=== PATIENT | male | born 1945 | race Caucasian/White ===

== ENCOUNTER → 2018-06-07 | Outpatient (REF) ==
[~2018-06-07] MED LIST: ALLEGRA 180MG180 MG PO; COMBIVENT INH14.7 GM IH; COUMADIN; DYAZIDE 25 MG-31 CAP PO; HCTZ; K-DUR20 MEQ PO; KLONOPIN 0.5MG0.5 MG PO; LIPITOR 10MG10 MG PO; LISINOPRIL; PRILOSEC 20MG20 MG PO; PRINIVIL20 MG PO; PROCARDIA XL 3030 MG PO; PROCARDIA10 MG PO; RESTORIL; RESTORIL30 MG; REVATIO20 MG PO; SINEQUAN75 MG PO; SYNTHROID0.1 MG/TAB PO; VICODIN 5/5001 UDTAB PO
[2018-06-07 15:42] LABS: THYROID STIMULATING HORMONE 2.15 uIU/mL (0.465-4.680)
[2018-06-07 16:11] LABS: PSA-TOTAL 1.11 ng/mL (0-4)
== END ==
LOC: ZLAB.WCH 14:50
PROVIDERS: Family Medicine
DX: Z01.89 Encounter for other specified special examinations (principal)
CPT/HCPCS: G0103

== ENCOUNTER → 2018-08-13 | Outpatient (CLI) | payer BC | LOC: COL.VAS 07:25 | DX: I82.402 Acute embolism and thrombosis of unspecified deep veins of left lower extremity (principal); I70.203 Unspecified atherosclerosis of native arteries of extremities, bilateral legs ==

== ENCOUNTER 2020-04-05 16:30 | Inpatient (IN) | payer MEDICARE, BC ==
[~2020-04-05] VITALS: Ht 190.5 cm; Wt 109.1 kg
[2020-04-05 17:07] LABS: BASO % 0.1 % (0.0-2.0); GRAN # 9.4 (1.4-6.5); GRAN % 83.4 % (42.2-75.2); HEMATOCRIT 45.9 % (42.0-52.0); LYMPH # 0.9 (1.2-3.4); MEAN CELL VOLUME 96 fl (80.0-100.0); MEAN CORPUSCULAR HEMOGLOBIN 33 pg (27.0-31.0); MEAN CORPUSCULAR HGB CONC 35 g/dl (33.0-37.0); MEAN PLATELET VOLUME 8.9 fl (7.4-10.4); MONO # 0.9 (0.1-0.6); PLATELET COUNT 189 K/mm3 (130-400)
[2020-04-05 17:46] LABS: ALCOHOL(ethanol),MEDICAL < 10 mg/dL
[2020-04-05 20:21] LABS: ALANINE AMINOTRANSFERASE 53 U/L (4-49); ALBUMIN 4.4 gm/dL (3.5-5.0); ALKALINE PHOSPHATASE 84 U/L (50-136); ANION GAP 9 mmol/L (7-16); AST,SGOT 279 U/L (15-37); BILIRUBIN,TOTAL 2.2 mg/dL (0.0-1.0); BLOOD UREA NITROGEN 18 mg/dL (9-20); C-REACTIVE PROTEIN 4.6 mg/dL (0.0-0.9); CALCIUM 9.5 mg/dL (8.4-10.2); CARBON DIOXIDE 24 mmol/L (22-30); CHLORIDE 91 mmol/L (98-107); CREATININE, serum 2.24 (0.66-1.25); GLUCOSE 122 mg/dL (74-106); POTASSIUM 4.4 mmol/L (3.4-5.0); SODIUM 125 mmol/L (137-145); TOTAL PROTEIN 7.9 gm/dL (6.4-8.2)
[2020-04-05 20:30] LABS: TROPONIN-I < 0.012 ng/mL (0.000-0.035)
[2020-04-05 23:27] LABS: COLLECTION METHOD CLEAN CATCH
[2020-04-05 23:34] LABS: MUCOUS Present /lpf; PH 5 (5-8); SQUAMOUS EPITHELIAL 0-2 /hpf; URINE APPEARANCE Cloudy; URINE BACTERIA Rare /hpf; URINE BILIRUBIN Negative (NEGATIVE); URINE BLOOD 3+ (NEGATIVE); URINE COLOR Yellow; URINE GLUCOSE Negative (NEGATIVE); URINE KETONE Negative (NEGATIVE); URINE LEUKOCYTE ESTERASE 1+ (NEGATIVE); URINE NITRATE Negative (NEGATIVE); URINE PROTEIN(semi-quant) 1+ (NEGATIVE); URINE RBC >50 /hpf; URINE UROBILINOGEN Negative (NEGATIVE)
[2020-04-06] MEDS ORDERED: PROVENTIL0.09 MG/A1 IH (01:42)
[2020-04-06] MEDS ORDERED: PRINIVIL10 MG PO (01:44)
[2020-04-06] MEDS ORDERED: FLOMAX 0.40.4 MG/CAP PO (01:45)
[2020-04-06] MEDS ORDERED: K-DUR20 MEQ PO (01:46)
[2020-04-06] MEDS ORDERED: XARELTO20 MG PO (01:46)
[2020-04-06] MEDS ORDERED: HCTZ 25MG TAB25 MG PO (01:47)
--- NOTE | 2020-04-06 03:05 | NUR ---
Patient arrived to surgical floor room 331 from ER at 0200. Patient alert and oriented. Patient denies chest pain, SOB/dyspnea, headache, dizziness, or N/V. Patient reports left sided weakness and some left shoulder and back pain. Left hand mason helper is very weak and barely moves left arm. Sensations and pulses are intact throughout the extremities. Speech is clear mostly but does have slurring of some words. Abrasions to both knees and lower legs, bruises to face noted. IV fluid started at 125ml/hr via right upper arm. Oriented patient to room. Call light within reach and bed-alarms on. Patient denies any needs at this time.
[2020-04-06 05:13] VITALS: BP 141/86; PULSE 86; TEMP 98.2
[2020-04-06 07:20] LABS: BASO % 0.4 % (0.0-2.0); EOS # 0.1 (0.0-0.7); EOS % 1.3 % (0-4.0); GRAN # 6.3 (1.4-6.5); GRAN % 61.5 % (42.2-75.2); HEMATOCRIT 40.2 % (42.0-52.0); HEMOGLOBIN 14.3 g/dl (13.5-18.0); LYMPH # 2.7 (1.2-3.4); LYMPH % 26.5 % (20.0-51.0); MEAN CELL VOLUME 94 fl (80.0-100.0); MEAN CORPUSCULAR HEMOGLOBIN 33 pg (27.0-31.0); MEAN CORPUSCULAR HGB CONC 36 g/dl (33.0-37.0); MEAN PLATELET VOLUME 8.8 fl (7.4-10.4); MONO % 9.8 % (1.7-9.3); PLATELET COUNT 186 K/mm3 (130-400); RED BLOOD COUNT 4.29 M/mm3 (4.20-5.60); REDCELL DISTRIBUTION WIDTH-CV 12.9 % (11.5-14.5)
[2020-04-06 07:33] LABS: ALBUMIN 3.5 gm/dL (3.5-5.0); BILIRUBIN,TOTAL 2.2 mg/dL (0.0-1.0); CALCIUM 8.5 mg/dL (8.4-10.2); CREATININE, serum 1.68 (0.66-1.25); POTASSIUM 3.7 mmol/L (3.4-5.0); TOTAL PROTEIN 6.6 gm/dL (6.4-8.2)
[2020-04-06 07:48] VITALS: BP 139/82; PULSE 95; TEMP 97.8
--- NOTE | 2020-04-06 08:00 | NUR ---
PATIENT IS A&O. VSS. MARIO PAIN, SOA, DIZZINESS OR SAAVEDRA. PATIENT REPORTS SOME SLURRED SPEECH WHEN ADMITTED. SPEECH IS CLEAR AND PATIENT ANSWERS QUESTIONS APPROPRIATLY HOWEVER, PATIENT IS VERY TALKATIVE AND CHANGES TOPIC FREQUENTLY. PATIENT CAN NOT STAY ON TOPIC AND HAS A PERSISTANT NEEDS TO TELL STAFF HIS LIFE STORE, SOME OF WHICH IS NOT APPROPRIATE. PATIENT STARTED TELLING NURSING THIS AM ABOUT HIS HX OF DRUG AND ALCOHOL USE AND HIS "PARTING DAYS" AND HOW HE DATED A NURSE. PATIENT DOES DISPLAY SOME MILD WEAKNESS TO LEFT ARM. PATIENT HAS BEEN FALLING AT HOME AND HAS BRUISES TO BLE. PATIENT REQUIRES 1-2 ASSIST WITH TRANSFERS. PT/OT CONSULTED. NEURO CHECKS WNL. NO C/O N/V. HEAD TO TOE ASSESSMENT COMPLETE. NEPHROLOGY & NEUROLOGY CONSULTED EARLY THIS AM BY WAFER PRODUCTION WORKER. PATIENT SCHEDULED FOR MRI TODAY. NO OTHER NEEDS AT THIS TIME. CALL LIGHT IN REACH.
--- NOTE | 2020-04-06 11:25 | NUR ---
PATIENT GOING DOWN FOR MRI
--- NOTE | 2020-04-06 11:35 | NUR ---
CALLED [facility] FOR UPDATED MED LIST AND TO FIND OUT WHY PATIENT IS ON XARELTO PER . LEFT MESSAGE
--- NOTE | 2020-04-06 12:14 | NUR ---
First visit from the data governance analyst. No needs right now.
--- NOTE | 2020-04-06 12:15 | NUR ---
PATIENT BACK IN ROOM FROM MRI
[2020-04-06 12:16] VITALS: BP 121/93; PULSE 90; TEMP 98
[2020-04-06 13:01] LABS: CALCIUM 8.7 mg/dL (8.4-10.2); CREATININE, serum 1.47 (0.66-1.25)
--- NOTE | 2020-04-06 14:50 | NUR ---
CALLED BACK AND SENT UPDATE FAX OF PATIENT'S MED LIST. NURSE ALSO CONFIRMED PATIENT WAS PLACED ON XARELTO IN 2019 FOR A LLE DVT.
--- NOTE | 2020-04-06 15:44 | NUR ---
SW met with the patient to discuss discharge plan. The patient lives alone in [place]. He reports independence with ADLs and does not have any DME. The patient's PCP is Dr. Linda Cruz and he receives his medications by delivery from [facility]. He reports no difficulties obtaining his meds. The patient does not have a DPOA-HC, but he was interested in obtaining a form. SW provided. The patient states that he is and has two children: Nell and Gerber Mcmillan (ph#[phone]). He states that he is estranged from Nell and does not have the best relationship with Gerber. The patient states that he still keeps in contact with his ex-, Katia Romo (ph#[phone]), and would want her to be his DPOA-HC. He states that he would like to talk to her first about being his DPOA-HC, before completing one. Katia lives in [place]. EMS found the patient down in his home when they arrived. They report that the patient's home is non-livable and that it had a lot of clutter and was dirty. SW addressed this with the patient. He states that he has a shopping addiction and is filling a void. He sees a clinical director social at [facility] in [place] for his mental health and they have addressed this. PT/OT are recommending post-acute rehab upon discharge. SW discussed this with the patient. The patient is agreeable to rehab. He confirms he does not have Medicare and only a federal [employer] plan. He would be interested in applying for disability and Medicaid. HILARIA consulted Financial Counselor, Donna. The patient was open for SW to send referrals. HILARIA consulted IPR Director, Jessica. HILARIA contacted and gave a referral to Aaliyah at [facility]. HILARIA contacted and faxed a referral to ESTEE Lizarraga, and Patrick. Awaiting screens. HILARIA received a phone call from Angelia Pillai, APS worker (ph#[phone]). Angelia reports that they received a report on the patient and he is now assigned to her. She has not met with him yet. Angelia plans to come and meet him morning. HILARIA updated her on the above information.
[2020-04-06 16:27] VITALS: BP 131/80; PULSE 93; TEMP 97.6
--- NOTE | 2020-04-06 17:45 | NUR ---
BACK AT BEDSIDE TO EXPLAIN MRI PROTOCOLS AND THAT THE CT IMAGE IS APPROPRIATE. GOES ON TO EXPLAIN ADDITIONAL OUTPATIENT TREATMENT PLAN FOR THE PATIENT BUT MADE SURE TO ADDRESS THE DAUGHTERS CONTINOUS CONCERNS ABOUT NOT HAVING AN MRI PERFORMED DURING THIS HOSPITALIZATION.
[2020-04-06] MEDS ORDERED: CIALIS5 MG PO (17:48)
--- NOTE | 2020-04-06 20:00 | NUR ---
Report received, assumed care for lieutenant shift supervisor. Assessment complete. VS stable. A&Ox3-conversation very flighty and all over the place. Denies pain/nausea/shortness of breath. At first thought it was 0800. Reoriented to time and states he has no idea why he thought that. Plan of care discussed for this shift to include HS meds/neuro checks/urine specimen/calling for questions/concerns. Verbalizes understanding/denies needs. Call light in reach. will monitor.
[2020-04-06 21:50] VITALS: BP 155/80; PULSE 109; TEMP 98.6
[2020-04-07 20:00] VITALS: BP 124/70; PULSE 92; TEMP 98
[2020-04-08 00:17] VITALS: BP 156/71; PULSE 84; TEMP 97.9
--- NOTE | 2020-04-08 00:35 | NUR ---
PATIENT WAS RECEIVED FAIR IN BED.DUE MEDS GIVEN,ASSESSMENT DONE.PATIENT IS TALKING TO HIMSELF.NO OTHER NEEDS AT THIS TIME.
[2020-04-08 04:03] VITALS: BP 136/70; PULSE 83; TEMP 98
--- NOTE | 2020-04-08 04:42 | NUR ---
PATIENT HAS BEEN UP ALL NIGHT,DEPENDENT ON STAFF.NO CONCERNS RAISED.
[2020-04-08 07:07] LABS: BASO % 0.6 % (0.0-2.0); EOS # 0.3 (0.0-0.7); EOS % 3.7 % (0-4.0); GRAN # 3.6 (1.4-6.5); GRAN % 53.5 % (42.2-75.2); HEMOGLOBIN 12.8 g/dl (13.5-18.0); LYMPH % 30.1 % (20.0-51.0); MEAN CELL VOLUME 93 fl (80.0-100.0); MEAN CORPUSCULAR HEMOGLOBIN 33 pg (27.0-31.0); MEAN CORPUSCULAR HGB CONC 35 g/dl (33.0-37.0); MEAN PLATELET VOLUME 8.7 fl (7.4-10.4); MONO # 0.8 (0.1-0.6); MONO % 11.7 % (1.7-9.3); PLATELET COUNT 176 K/mm3 (130-400); RED BLOOD COUNT 3.89 M/mm3 (4.20-5.60); REDCELL DISTRIBUTION WIDTH-CV 12.9 % (11.5-14.5)
[2020-04-08 07:25] LABS: CALCIUM 8.4 mg/dL (8.4-10.2); CREATININE, serum 1.12 (0.66-1.25); HEMATOCRIT 36.2 % (42.0-52.0); POTASSIUM 3.1 mmol/L (3.4-5.0)
[2020-04-08 08:29] VITALS: BP 125/79; PULSE 65; TEMP 98.9
--- NOTE | 2020-04-08 09:19 | NUR ---
*late entry-04/07/20* Financial Counselor notified HILARIA that she completed a disability and Medicare application with the patient. The patient informed her he makes to much and did not want to complete a Medicaid rubén. Donna will need release of information forms signed by the patient. The patient was transferred to the medical unit. HILARIA notified the medical office technologist, Nancy, and provided her with the forms.
--- NOTE | 2020-04-08 10:05 | NUR ---
Initial visit; Patient thanked Sales Training Representative for raising his bedside tray and wishing him well.
--- NOTE | 2020-04-08 11:16 | NUR ---
Nuclear Worker Technician met with Angelia Pillai, APS Worker. She is visiting the patient this day. SW staffed with house wirer regarding the patient's discharge disposition. The patient is to transfer to [facility] this day for further care. Awaiting room assignment.
[2020-04-08 11:29] LABS: COLLECTION METHOD CLEAN CATCH
[2020-04-08 11:38] VITALS: BP 125/79; PULSE 65; TEMP 98.9
[2020-04-08 12:01] LABS: URINE COLOR Yellow
--- NOTE | 2020-04-08 12:01 | NUR ---
The patient is to transfer to [facility], RM 573 this day. Comedian met with the patient to complete DPOA-HC paperwork. The patient designated his son, Gerber Mcmillan # . A copy was placed in the chart. Original and copies provided to the patient. HILARIA contacted HILARIA Taylor with [facility] to provide update regarding patients APS reports and referrals that were sent out. HILARIA faxed DPOA-HC. There are no additional needs.
[2020-04-08 12:02] LABS: PH 5 (5-8); URINE APPEARANCE Clear; URINE PROTEIN(semi-quant) Negative (NEGATIVE)
[2020-04-08 12:03] LABS: URINE BILIRUBIN Negative (NEGATIVE); URINE GLUCOSE Negative (NEGATIVE); URINE KETONE Negative (NEGATIVE); URINE UROBILINOGEN Negative (NEGATIVE)
[2020-04-08 12:04] LABS: SQUAMOUS EPITHELIAL 0-2 /hpf; URINE BACTERIA Rare /hpf; URINE BLOOD 3+ (NEGATIVE); URINE LEUKOCYTE ESTERASE Negative (NEGATIVE); URINE NITRATE Negative (NEGATIVE); URINE RBC 20-50 /hpf
[2020-04-08 12:06] LABS: CALCIUM 8.9 mg/dL (8.4-10.2); CREATININE, serum 1.23 (0.66-1.25); POTASSIUM 4.1 mmol/L (3.4-5.0)
--- NOTE | 2020-04-08 12:24 | NUR ---
PATIENT TRANSFERED TO [facility]. REPORT GIVEN TO PRIMARY RN AT [facility].
[2020-04-08 15:02] LABS: BASO % 0.4 % (0.0-2.0); EOS # 0.1 (0.0-0.7); EOS % 0.5 % (0-4.0); GRAN # 7.6 (1.4-6.5); GRAN % 78.6 % (42.2-75.2); HEMATOCRIT 40.7 % (42.0-52.0); HEMOGLOBIN 14.2 g/dl (13.5-18.0); LYMPH # 1.1 (1.2-3.4); LYMPH % 11.5 % (20.0-51.0); MEAN CELL VOLUME 95 fl (80.0-100.0); MEAN CORPUSCULAR HEMOGLOBIN 33 pg (27.0-31.0); MEAN CORPUSCULAR HGB CONC 35 g/dl (33.0-37.0); MEAN PLATELET VOLUME 8.3 fl (7.4-10.4); MONO # 0.8 (0.1-0.6); MONO % 8.4 % (1.7-9.3); PLATELET COUNT 211 K/mm3 (130-400); RED BLOOD COUNT 4.29 M/mm3 (4.20-5.60); REDCELL DISTRIBUTION WIDTH-CV 13.1 % (11.5-14.5)
[2020-11-12] MEDS ORDERED: PRINIVIL10 MG PO (08:57)
[2020-11-12] MEDS ORDERED: OMNICEF 300MG300 MG PO (09:03)
== END 2020-04-08 12:00 | disposition home or self-care (01) | DRG 65 ==
LOC: COL.ER 16:30 → MEDICAL 23:44 → JCC 23:44 → MEDICAL 04-07 22:45 → JCC 04-07 22:45 → MEDICAL 04-08 12:00
PROVIDERS: Family Medicine; Internal Medicine Nephrology; Physician Assistant; Student in an Organized Health Care Education/Training Program; ADMIT Hospitalist
DX: I63.133 Cerebral infarction due to embolism of bilateral carotid arteries (principal); G81.94 Hemiplegia, unspecified affecting left nondominant side; N17.9 Acute kidney failure, unspecified; N39.0 Urinary tract infection, site not specified; E87.2 Acidosis; E87.1 Hypo-osmolality and hyponatremia; N18.9 Chronic kidney disease, unspecified; E87.6 Hypokalemia; E83.42 Hypomagnesemia; E03.9 Hypothyroidism, unspecified; K21.9 Gastro-esophageal reflux disease without esophagitis; I12.9 Hypertensive chronic kidney disease with stage 1 through stage 4 chronic kidney disease, or unspecified chronic kidney disease; F32.9 Major depressive disorder, single episode, unspecified; G47.00 Insomnia, unspecified; E78.5 Hyperlipidemia, unspecified; J44.9 Chronic obstructive pulmonary disease, unspecified; N40.0 Benign prostatic hyperplasia without lower urinary tract symptoms; Z88.0 Allergy status to penicillin; Z88.1 Allergy status to other antibiotic agents; Z88.2 Allergy status to sulfonamides; Z87.891 Personal history of nicotine dependence; Z79.01 Long term (current) use of anticoagulants; Z86.718 Personal history of other venous thrombosis and embolism
CPT/HCPCS: OP; 99223-AI; 99239; J1956; J3475; J7030

== ENCOUNTER 2020-05-15 09:14 | Observation (INO) | payer BC ==
[~2020-05-15] VITALS: Ht 190.5 cm; Wt 105.0 kg
[~2020-05-15 09:14] MED LIST changes: +CIALIS5 MG PO; +FLOMAX 0.40.4 MG/CAP PO; +HCTZ 25MG TAB25 MG PO; +PRINIVIL10 MG PO; +PROVENTIL0.09 MG/A1 IH; +XARELTO20 MG PO
[2020-05-15 10:25] LABS: BASO # 0.1 (0.0-0.2); BASO % 0.7 % (0.0-2.0); EOS # 0.2 (0.0-0.7); EOS % 2.6 % (0-4.0); GRAN # 6.3 (1.4-6.5); GRAN % 75.5 % (42.2-75.2); HEMATOCRIT 37.9 % (42.0-52.0); HEMOGLOBIN 12.8 g/dl (13.5-18.0); LYMPH # 1.1 (1.2-3.4); LYMPH % 13.2 % (20.0-51.0); MEAN CELL VOLUME 98 fl (80.0-100.0); MEAN CORPUSCULAR HEMOGLOBIN 33 pg (27.0-31.0); MEAN CORPUSCULAR HGB CONC 34 g/dl (33.0-37.0); MEAN PLATELET VOLUME 8.9 fl (7.4-10.4); MONO # 0.6 (0.1-0.6); MONO % 7.4 % (1.7-9.3); PLATELET COUNT 204 K/mm3 (130-400); RED BLOOD COUNT 3.88 M/mm3 (4.20-5.60); REDCELL DISTRIBUTION WIDTH-CV 14.6 % (11.5-14.5)
[2020-05-15 10:29] LABS: INR 1.6 (0.8-3.0); PROTHROMBIN TIME 17.8 SECONDS (9.7-12.8)
[2020-05-15 10:30] LABS: COLLECTION METHOD CLEAN CATCH
[2020-05-15 10:32] LABS: PARTIAL THROMBOPLASTIN TIME 25.4 SECONDS (26.0-37.0)
[2020-05-15 10:35] LABS: LIPASE 61 U/L (23-300)
[2020-05-15 10:47] LABS: CREATINE KINASE 173 U/L (55-170)
[2020-05-15 10:53] LABS: PH 6 (5-8); SQUAMOUS EPITHELIAL 0-2 /hpf; URINE APPEARANCE Hazy; URINE BACTERIA Rare /hpf; URINE BILIRUBIN Negative (NEGATIVE); URINE BLOOD 2+ (NEGATIVE); URINE COLOR Yellow; URINE GLUCOSE Negative (NEGATIVE); URINE KETONE Negative (NEGATIVE); URINE LEUKOCYTE ESTERASE Trace (NEGATIVE); URINE NITRATE Negative (NEGATIVE); URINE PROTEIN(semi-quant) 1+ (NEGATIVE); URINE UROBILINOGEN Negative (NEGATIVE)
[2020-05-15 10:56] LABS: TROPONIN-I < 0.012 ng/mL (0.000-0.035)
[2020-05-15 11:22] LABS: ALBUMIN 3.5 gm/dL (3.5-5.0); BILIRUBIN,TOTAL 1.4 mg/dL (0.0-1.0); CALCIUM 8.5 mg/dL (8.4-10.2); CREATININE, serum 1.73 (0.66-1.25); MAGNESIUM 1.7 mg/dL (1.6-2.3); TOTAL PROTEIN 6.7 gm/dL (6.4-8.2)
[2020-05-15] MEDS ORDERED: HCTZ 25MG TAB25 MG PO (12:49)
[2020-05-15] MEDS ORDERED: K-DUR20 MEQ PO (12:51)
[2020-05-15] MEDS ORDERED: XARELTO20 MG PO (12:53)
[2020-05-15 16:47] VITALS: BP 122/59; PULSE 69; TEMP 97.6
--- NOTE | 2020-05-15 17:00 | NUR ---
Pt to room 308 at this time. He is A/O x4. Breathing is even and unlabored on RA. Pt denies any pain. He does have some weakness to LUE, unable to lift LUE as high as RUE. Reports chronic light sensitivity, requesting to have blanket over head at all times. Pt requires a lot of encouragement to care for himself. States he is too weak. Pt requesting to have shoes on while in bed. Assisted multiple times in urinating small amounts. POC discussed with patient.
--- NOTE | 2020-05-15 18:45 | NUR ---
Report given to RN at [facility].
--- NOTE | 2020-05-15 19:05 | NUR ---
EMS here to transport patient to [facility]. Report given-copied chart provided. Assisted to stretcher-belongings sent with patient.
[2020-11-12] MEDS ORDERED: PRINIVIL10 MG PO (08:57)
[2020-11-12] MEDS ORDERED: OMNICEF 300MG300 MG PO (09:03)
== END 2020-05-15 19:05 | disposition critical access hospital (66) ==
LOC: COL.ER 09:14 → MEDICAL 12:29
PROVIDERS: Emergency Medicine; ADMIT Student in an Organized Health Care Education/Training Program
DX: I95.9 Hypotension, unspecified (principal); N39.0 Urinary tract infection, site not specified; W19.XXXA Unspecified fall, initial encounter; I12.9 Hypertensive chronic kidney disease with stage 1 through stage 4 chronic kidney disease, or unspecified chronic kidney disease; N18.9 Chronic kidney disease, unspecified; E03.9 Hypothyroidism, unspecified; Z86.73 Personal history of transient ischemic attack (TIA), and cerebral infarction without residual deficits; I65.23 Occlusion and stenosis of bilateral carotid arteries; R53.81 Other malaise; K21.9 Gastro-esophageal reflux disease without esophagitis; F32.9 Major depressive disorder, single episode, unspecified; E78.5 Hyperlipidemia, unspecified; G47.30 Sleep apnea, unspecified; Z87.891 Personal history of nicotine dependence; Z79.01 Long term (current) use of anticoagulants; Z88.0 Allergy status to penicillin; Z88.2 Allergy status to sulfonamides; Z88.1 Allergy status to other antibiotic agents
CPT/HCPCS: C9132; G0378; J1956; J7030; J7120

== ENCOUNTER 2020-11-10 09:13 | Day surgery (SDC) | payer BC, MEDICARE ==
[2020-11-10] MEDS ORDERED: PRINIVIL10 MG PO (14:52)
[2020-11-10] MEDS ORDERED: MELATONIN5 M1 SL (15:03)
[2020-11-10] MEDS ORDERED: ALLEGRA 60MG TA60 MG PO (16:17)
[2020-11-10] MEDS ORDERED: TYLENOL 325MG325 MG PO (16:17)
[2020-11-10] MEDS ORDERED: COLACE 100100 MG/CAP PO (16:18)
[2020-11-10] MEDS ORDERED: DULCOLAX S10 MG/SUPP RC (16:19)
[2020-11-10] MEDS ORDERED: FLOMAX 0.40.4 MG/CAP PO (16:20)
[2020-11-10] MEDS ORDERED: ONE-A-DAY ESSE1 EACH PO (16:21)
[2020-11-10] MEDS ORDERED: NYSTATIN100000 U/1 TOP (16:21)
[2020-11-10] MEDS ORDERED: KLOR-CON SPRIN10 MEQ PO (16:23)
[2020-11-10] MEDS ORDERED: REVATIO20 MG PO (16:24)
[2020-11-10] MEDS ORDERED: PROVENTIL0.09 MG/A1 IH (16:24)
[2020-11-10] MEDS ORDERED: ALDACTONE 25MG25 M1 PO (16:24)
[2020-11-12] MEDS ORDERED: PRINIVIL10 MG PO (08:57)
[2020-11-12] MEDS ORDERED: OMNICEF 300MG300 MG PO (09:03)
== END 2020-11-10 10:34 | disposition critical access hospital (66) ==
LOC: SDCO 09:13
DX: R31.0 Gross hematuria (principal); Z53.8 Procedure and treatment not carried out for other reasons
CPT/HCPCS: G0378

== ENCOUNTER 2020-12-31 09:40 | Day surgery (SDC) | payer MEDICARE, BC ==
--- NOTE | 2020-11-10 09:25 | NUR ---
Recieved patient from senior living transportations staff. Patient slumped over in wheelchair and unresponsive. supervisor steno pool called. Transfered patient to cart, vitals obtained. Blood pressure readings ranging from 150/133 to 65/27, O2 saturation 92% - 100%, HR 70-80 bpm, respirations 16 - 20/min, temp 97.6, BG - 167. Minimal response to painful stimuli. Dr. Recinos in room. Patient spontaneously began asnswering questions and became alert and oriented. EKG ordered. BP now ranging from 88/56 - 98/67, O2 saturation 78% - 89%, HR 70-80, respirations 16-20. Heart tones regular. Lungs course crackles all wisdom. Bowel sounds +X4. Bilateral radial and pedal pulses weak and thready. Cap refill <3 seconds. Left pupil non reactive to light. LUE weakness. Alert and oriented x4. Patient transfered to ED per Dr. Recinos. Report call to ED nurse. EKG report and patient belonings and senior living wheelchair transfered to patients room in ED.
--- NOTE | 2020-12-30 10:46 | NUR ---
Spoke to DIPESH Sorensen at [facility] regarding pre-op instructions. Instructions also given to patient.
[~2020-12-31] VITALS: Ht 193 cm; Wt 90.2 kg
[2020-12-31] VITALS (13 sets, daily range): BP systolic 91–152; BP diastolic 62–82; PULSE 70–94; TEMP 97.4–97.9
[~2020-12-31 09:40] MED LIST changes: +ALDACTONE 25MG25 M1 PO; +ALLEGRA 60MG TA60 MG PO; +COLACE 100100 MG/CAP PO; +DULCOLAX S10 MG/SUPP RC; +KLOR-CON SPRIN10 MEQ PO; +MELATONIN5 M1 SL; +NYSTATIN100000 U/1 TOP; +OMNICEF 300MG300 MG PO; +ONE-A-DAY ESSE1 EACH PO; +TYLENOL 325MG325 MG PO
--- NOTE | 2020-12-31 09:45 | NUR ---
Patient arrived with [facility] transport.
[2020-12-31] MEDS ORDERED: PRILOSEC 20MG20 MG PO (10:38)
--- NOTE | 2020-12-31 18:40 | NUR ---
PT RESTING IN BED. NO COMPLAINTS OF PAIN OR DYSPNEA. NO SIGNS OF DISTRESS NOTED. PT REPORTS BEING HUNGRY. CLEAR LIQUID TRAY ORDERED. CALL LIGHT WITHIN REACH
--- NOTE | 2020-12-31 21:00 | NUR ---
Pt. sitting up in bed. Pt. is A&OX3, assessment complete. IV to lt. wrist patent, IV fluids infusing per orders. PT. denies pain or other needs, call light within reach.
[2021-01-01 03:42] VITALS: BP 111/56; PULSE 68; TEMP 97.6
--- NOTE | 2021-01-01 07:12 | NUR ---
REPORT RECIEVED FROM SALESPERSON WOMEN'S DRESSES. NO COMPLAINTS OF PAIN OR DYSPNEA. NO SIGNS OF DISTRESS. PT RESTING IN BED. CALL LIGHT WITHIN REACH.
[2021-01-01 07:58] VITALS: BP 113/69; PULSE 74; TEMP 97.9
--- NOTE | 2021-01-01 09:55 | NUR ---
PT ASSESSED. NO COMPLAINTS OF PAIN OR DYSPNEA. CATHETER REMOVED PER ORDERS. NO SIGNS OR SYMPTOMS OF DISTRESS. CALL LIGHT WITHIN REACH
--- NOTE | 2021-01-01 12:01 | NUR ---
Plan is to return to [facility] in [place] SW met with patient about care. Patient reports that he resides at the [facility]. Patient shares that he has a slew if medical issues. Patient reports that he uses a wheelchair and walker but has had increase destability in movement. Patient reports that he would like to change that range and walk more. Patient reports that his PCP is Dr. Jennifer Cruz and Dr. Talavera. Patient reports that he has bladder cancer and has a r&d lab technician. Patient reports that he has a specialist in [place]. Patient indicated that he has icreasing falls recently. Patient shared that he spent some time at [facility]. Patient denies having any o2 or heart devices. Educated on services with case management and outpatient services for PT. RACHELLE is his adult son and ex-. HILARIA made aware of DC to [facility] Faxed DC packet to . NF>
--- NOTE | 2021-01-01 12:58 | NUR ---
PT DISCHARGED TO [facility]. NO SIGNS OF DISTRESS. PT DID NOT VOID WITH CATHETER REMOVAL, HOWEVER MD DOES NOT SEE THIS A PROBLEM AND GAVE THE OKAY TO DISCHARGE. IV REMOVED. PT DRESSED WITH HELP OF PCT.
== END 2021-01-01 13:00 ==
LOC: SDCO 09:40 → SURG 12:10 → SDCO 16:45 → SURG 01-01 02:36 → SDCO 01-01 13:00
DX: C67.0 Malignant neoplasm of trigone of bladder (principal); N40.0 Benign prostatic hyperplasia without lower urinary tract symptoms; I69.354 Hemiplegia and hemiparesis following cerebral infarction affecting left non-dominant side; I69.320 Aphasia following cerebral infarction; I65.29 Occlusion and stenosis of unspecified carotid artery; I12.9 Hypertensive chronic kidney disease with stage 1 through stage 4 chronic kidney disease, or unspecified chronic kidney disease; N18.9 Chronic kidney disease, unspecified; E03.9 Hypothyroidism, unspecified; K21.9 Gastro-esophageal reflux disease without esophagitis; G47.00 Insomnia, unspecified; J44.9 Chronic obstructive pulmonary disease, unspecified; E78.5 Hyperlipidemia, unspecified; I25.10 Atherosclerotic heart disease of native coronary artery without angina pectoris; Z79.01 Long term (current) use of anticoagulants; Z79.890 Hormone replacement therapy; Z87.891 Personal history of nicotine dependence; Z79.899 Other long term (current) drug therapy; Z99.3 Dependence on wheelchair; Z86.718 Personal history of other venous thrombosis and embolism
CPT/HCPCS: OP; C1769; C2617; J1100; J1956; J2405; J2704; J3010; J3480; J7120

== ENCOUNTER 2021-01-25 11:27 | Day surgery (SDC) | payer MEDICARE, BC ==
[~2021-01-25] VITALS: Ht 190.5 cm; Wt 89.5 kg
[2021-01-25 12:55] VITALS: BP 134/86; PULSE 100; TEMP 97.9
--- NOTE | 2021-01-25 13:00 | NUR ---
Resting and awaits bedside cystoscopy with stent pull. Siderails up x2 and watches TV.
--- NOTE | 2021-01-25 13:45 | NUR ---
Dr. Recinos here and bedside cysto with stent pull started.
--- NOTE | 2021-01-25 13:49 | NUR ---
Procedure completed. Patient tolerated well.
--- NOTE | 2021-01-25 14:30 | NUR ---
Patient dressed and assisted up to wheelchair with two person assist and use of walker. Tolerates activity well. Patient dismissed back to [facility] per wheelchair van.
--- NOTE | 2021-01-25 15:00 | NUR ---
Report called to Olegario Clark and all questions answered.
[2021-01-31] MEDS ORDERED: LIPITOR 40MG TA40 MG PO (11:15)
[2021-01-31] MEDS ORDERED: ALLEGRA 60MG TA60 MG PO (11:15)
[2021-01-31] MEDS ORDERED: CIALIS5 MG PO (11:16)
[2021-01-31] MEDS ORDERED: SINEQUAN75 MG PO (11:17)
[2021-01-31] MEDS ORDERED: COLACE 100100 MG/CAP PO (11:17)
[2021-01-31] MEDS ORDERED: FLOMAX 0.40.4 MG/CAP PO (11:18)
[2021-01-31] MEDS ORDERED: LEVOXYL0.1 MG PO (11:19)
[2021-01-31] MEDS ORDERED: MULTI VITAMINS1 TAB PO (11:19)
[2021-01-31] MEDS ORDERED: MELATONIN5 M1 SL (11:19)
[2021-01-31] MEDS ORDERED: PRILOSEC 20MG20 MG PO (11:20)
[2021-01-31] MEDS ORDERED: XARELTO20 MG PO (11:21)
== END 2021-01-25 15:00 ==
LOC: SDCO 11:27
DX: C67.9 Malignant neoplasm of bladder, unspecified (principal); N13.5 Crossing vessel and stricture of ureter without hydronephrosis; J44.9 Chronic obstructive pulmonary disease, unspecified; Z86.73 Personal history of transient ischemic attack (TIA), and cerebral infarction without residual deficits; F32.A Depression, unspecified; Z86.718 Personal history of other venous thrombosis and embolism; K21.9 Gastro-esophageal reflux disease without esophagitis; I10 Essential (primary) hypertension; E87.5 Hyperkalemia; I95.9 Hypotension, unspecified; E03.9 Hypothyroidism, unspecified; Z87.440 Personal history of urinary (tract) infections; Z79.899 Other long term (current) drug therapy

== ENCOUNTER 2021-02-03 09:46 | Outpatient (CLI) | payer MEDICARE, BC ==
[~2021-02-03] VITALS: Ht 190.5 cm; Wt 92.0 kg
[2021-02-03] VITALS (17 sets, daily range): BP systolic 110–153; BP diastolic 57–103; PULSE 80–87; TEMP 98.5
[~2021-02-03 09:46] MED LIST changes: +LEVOXYL0.1 MG PO; +LIPITOR 40MG TA40 MG PO; +MULTI VITAMINS1 TAB PO
--- NOTE | 2021-02-03 10:52 | NUR ---
Specimens obtained and placed in formalin by Dr Mcnair. Specimen labeled.
--- NOTE | 2021-02-03 14:05 | NUR ---
DC instructions reviewed with pt, he expresses understanding. Dressing unchanged from arrival, with small, less than dime sized spot of blood on bandaid. Care instructions reviewed with pt and with facility administrator who arrives to transport him back to [facility]. Pt transfers easily from bed to wheelchair with walker. He is assisted to dress. INT DC'd with catheter intact. He is assisted out [facility] transport vehicle. He tolerated PO food and fluids without issue.
== END 2021-02-03 14:05 | disposition home or self-care (01) ==
LOC: COL.RAD 09:46
DX: C67.2 Malignant neoplasm of lateral wall of bladder (principal); C79.19 Secondary malignant neoplasm of other urinary organs; R91.1 Solitary pulmonary nodule
CPT/HCPCS: 32107

== ENCOUNTER 2021-05-06 07:25 | Day surgery (SDC) | payer MEDICARE, BC ==
[~2021-05-06] VITALS: Ht 190.5 cm; Wt 95.5 kg
[2021-05-06] MEDS ORDERED: TYLENOL 325MG325 MG PO (08:23)
[2021-05-06] MEDS ORDERED: ASPIRIN E.C. 8181 MG PO (08:25)
[2021-05-06] MEDS ORDERED: CIALIS5 MG PO (08:30)
[2021-05-06 08:59] VITALS: BP 124/65; PULSE 80; TEMP 98.4
[2021-05-06 11:09] VITALS: BP 143/77; PULSE 85; TEMP 97.5
[2021-05-06 11:24] VITALS: BP 146/67; PULSE 85
[2021-05-06 11:39] VITALS: BP 139/66; PULSE 81
--- NOTE | 2021-05-06 12:10 | NUR ---
1109 PT RETURNED TO BAY 5 VIA CART. RESTING WITH EYE CLOSED, RESPONDS TO NAME AND ANSWERS QUESTIONS APPROPRIATELY. MONITORS ATTACHED, INTERVALS AND ALARMS SET. SUGAR FREE SPRIT AND MUFFIN PROVIDED. PT DENIES PAIN OR NAUSEA. 1124 PT TOLERATING FOOD ANDRINK WELL. VSS. 1139 D/C IV WITHOUT COMPLICATIONS. REVIEWED DISCHARGE INSTRUCTION AND EDUCATION MATERIAL WITH PT AND CARGIVER, BOTH VERBALIZED UNDERSTANDING. CARGIVER TO DRESS PT. 1210 PT TRANSFERED TO PERSONAL VEHICLE VIA PERSONAL WHEELCHAIR TO BE DRIVEN HOME BY CARGIVER/TRANSPORT. ASSISTED PT IN VEHICLE.
== END 2021-05-06 12:10 | disposition home or self-care (01) ==
LOC: SDCO 07:25
DX: C67.2 Malignant neoplasm of lateral wall of bladder (principal); R47.01 Aphasia; Z45.2 Encounter for adjustment and management of vascular access device; Z79.01 Long term (current) use of anticoagulants
CPT/HCPCS: C1788; J1644; J2405; J2704; J3010; J7120